=== PATIENT | male | born 1955 | race Caucasian/White ===

== ENCOUNTER → 2017-02-15 | Outpatient (CLI) | payer OTHER ==
--- NOTE | 2017-02-15 14:57 | MR ---
EXAMINATION TYPE: MR cervical spine wo con DATE OF EXAM: 02/15/2017 2:48 PM COMPARISON: 09/20/14 HISTORY: neck pain x 4 years follow up Multiplanar MultiSpin echo imaging of the cervical spine was performed. C2-C3: No evidence for degenerative disc disease. No disc bulge/herniation or protrusion. No Canal stenosis. Foramina are patent bilaterally. C3-C4: There is mild disc desiccation. Mild posterior disc bulge with mild effacement of the ventral thecal sac. No evidence for herniation or central stenosis. Foramina are patent bilaterally. C4-C5: Moderate disc desiccation with moderate posterior disc bulge. There is encapsulating spur resu lting in disc endplate complex. Moderate central stenosis persists. Degenerative changes of the uncov ertebral joints with right foraminal narrowing. Changes of compressive myelopathy. C5-C6: Moderate disc desiccation with moderate posterior disc bulge. There is encapsulating spur resu lting in disc endplate complex. Moderate central stenosis persists. Degenerative changes of the uncov ertebral joints with right foraminal narrowing. Changes of compressive myelopathy. C6-C7: Moderate disc desiccation with moderate posterior disc bulge. There is encapsulating spur resu lting in disc endplate complex. Moderate central stenosis persists. Degenerative changes of the uncov ertebral joints with bilateral foraminal narrowing. Changes of compressive myelopathy. C7-T1: No evidence for degenerative disc disease. No disc bulge/herniation or protrusion. No Canal stenosis. Foramina are patent bilaterally. Cervical segments are intact. There is normal alignment. Cervical spinal cord is of normal signal. Craniovertebral junction relationships are within normal limits. IMPRESSION: 1. Persistent degenerative disc disease with disc endplate complex at C4-5, C5-6 and C6-7 and resulta nt moderate central stenosis and varying degrees of foraminal encroachment. Mild interval progression at C6-7 relative to the prior study.
== END | disposition home or self-care (01) ==
LOC: RADMRIMAIN 14:09
PROVIDERS: ATTEND Psychiatry & Neurology Neurology
DX: M50.321 Other cervical disc degeneration at C4-C5 level (principal); M48.02 Spinal stenosis, cervical region; Z88.8 Allergy status to other drugs, medicaments and biological substances
CPT/HCPCS: 72141

== ENCOUNTER → 2021-09-08 | Outpatient (CLI) | payer MEDICARE, OTHER ==
--- NOTE | 2021-09-09 10:11 | CT ---
EXAMINATION TYPE: CT neck chest w con DATE OF EXAM: 09/08/2021 11:47 AM COMPARISON: PET scan 10/23/2019, CT scan 09/24/2019 HISTORY: Head and neck Cancer CT DLP: 568.80 mGycm Automated exposure control for dose reduction was used. CONTRAST: CT scan of the neck is performed following with IV Contrast, patient injected with 100 mL of Isovue 3 00. Axial images are obtained, coronal and sagittal reformatted images are reviewed. FINDINGS: Previously noted left sided neck mass is been surgically resected with adjacent surgical cl ips in the region of the previous lesion. No persistent underlying mass identified. No pathologic sofia nopathy. Hypertrophic and degenerative changes spine with facet arthropathy. Submandibular and parotid glands are symmetric. Vocal cords have a normal appearance. Thyroid enhance s normally. Lung apices clear. Visualized vasculature enhances normally. Calcification again noted ne ar the palatine tonsils could be sequela of previous infection and is nonspecific. Visualized orophar ynx and nasopharynx symmetric and there is a nasal septal deviation. Orbits symmetric. Emphysematous changes are seen involving the lungs compatible with COPD. There are two large areas of consolidation with air bronchograms involving the right lower lobe superior segmental largest measur ing 8.4 cm and the second measuring 4.9 cm. A third area of consolidation involving the right lung ba se is also seen. Left lung remains clear. No pleural effusion or pneumothorax. Heart size stable. Assessment for adenopathy particularly along the right hilum is limited due to extension of the conso lidation. Grossly there is no pathologic adenopathy within the mediastinum or left hilum. Pulmonary f indings are new compared to the previous PET scan. Hypertrophic and degenerative changes of the spine. Upper abdominal structures demonstrate no interva l change. IMPRESSION: 1. Postsurgical changes involving the soft tissues of the left neck with resection of previous mass a nd no definite residual enhancing mass. 2. There is interval development of multiple areas of large consolidation with air bronchograms exten ding from the right hilum predominantly within the right middle and lower lobe. This could be on the basis of a chronic atelectasis (right middle lobe syndrome). Correlate to exclude pneumonia. Neoplast ic process not entirely excluded. Consider pulmonary consultation.
== END | disposition home or self-care (01) ==
LOC: RADCTMAIN 10:14
PROVIDERS: ATTEND Internal Medicine Hematology & Oncology
DX: C76.0 Malignant neoplasm of head, face and neck (principal); J18.9 Pneumonia, unspecified organism
CPT/HCPCS: 82565; 84520; 70491; 71260; 36415; Q9967